=== PATIENT | female | born 1975 | race Two or more races ===

== ENCOUNTER 2017-01-19 12:15 | Emergency (ER) | payer BC ==
[~2017-01-19] VITALS: Ht 160 cm; Wt 93.9 kg
[2017-01-19 13:47] LABS: Urine Bilirubin Negative (Negative); Urine Color Yellow (Yellow); Urine Glucose Normal (Normal); Urine Mucus FEW (None Seen); Urine RBC 755 /hpf (0 - 4); Urine Squamous Epithelial Cell FEW /hpf (<5)
[2017-01-19 13:50] LABS: Urine Blood 3+ /uL (Negative); Urine Ketone 2+ (Negative); Urine Nitrite POSITIVE (Negative)
[2017-01-19 13:55] LABS: Basophils # (auto) 0 uL; Eosinophils # (auto) 0 uL; Hematocrit 37.8 % (36.0-46.0); Hemoglobin 12.6 g/dL (12.2-16.2); Lymphocytes # (auto) 0.7 uL; Lymphocytes % (auto) 5.7 % (10.0-50.0); Mean Corpuscular Hgb Conc. 33.4 g/dL (32.0-36.0); Mean Corpuscular Volume 83.8 fL (80.0-100.0); Mean Platelet Volume 9.9 fL (7.4-10.4); Monocytes # (auto) 0.5 uL; Monocytes % (auto) 4.2 % (0.0-12.0); Neutrophils # (auto) 11.5 uL; Neutrophils % (auto) 90.1 % (37.0-80.0); Platelet Count (auto) 317 10^3/uL (140-450); Red Cell Distribution Width 15.6 % (11.6-16.0); SUSPECT VIEW TRANSMISSION; White Blood Cell 12.8 10^3/uL (4.4-10.8)
[2017-01-19 14:14] LABS: Albumin 3.1 g/dL (3.4-5.0); BUN/Creatinine Ratio 16.1; Calcium 8.3 mg/dL (8.5-10.1); Potassium 3.7 mmol/L (3.5-5.1)
[2017-01-19 14:17] LABS: Bilirubin, Total 1.1 mg/dL (0.2-1.0); Total Protein 7.5 g/dL (6.4-8.2)
[2017-01-19] MEDS ORDERED: PANTOPRAZOLE SODIUM 40 MG/10 ML VIAL IV STA (18:44)
[2017-01-19] MEDS ORDERED: SODIUM CHLORIDE 0.9% 500 ML IVB ONE (18:44)
[2017-01-19] MEDS ORDERED: ONDANSETRON HCL 4 MG/2 ML VIAL IV ONE (18:45)
[2017-01-19] MEDS ORDERED: HYDROmorphone HCL 2 MG/ML VL IV ONE (18:45)
[2017-01-19] MEDS ORDERED: LEVOFLOXACIN 500MG 100 ML IV ONE (19:00)
[2017-01-19] MEDS ORDERED: ACETAMINOPHEN 325 MG TAB PO ONE (20:00)
[2017-01-19 20:57] LABS: Amylase 39 U/L (25-115)
[2017-01-19 23:34] VITALS: BP 127/72
== END 2017-01-20 00:24 | disposition short-term general hospital (02) ==
LOC: ER 12:16
DX: K80.20 Calculus of gallbladder without cholecystitis without obstruction (principal); N39.0 Urinary tract infection, site not specified; Z87.11 Personal history of peptic ulcer disease
CPT/HCPCS: 36415; 76705; 80053; 81001; 81025; 82150; 83690; 85025; 94761; 96365; 96375; 99285; C9113; J1170; J1956; J2405; J7030